=== PATIENT | male | born 1960 | race Caucasian/White ===

== ENCOUNTER 2016-11-16 13:47 | Outpatient (CLI) | payer OTHER ==
[2016-11-16 14:28] LABS: #Eosinphils 0.1 thou/uL (0.0-0.7); #Lymphocytes 1.2 thou/uL (1.20-3.40); #Monocytes 0.8 thou/uL (0.11-0.59); #Neutrophils 5.3 thou/uL (1.40-6.50); %Basophils 0.7 % (0.0-1.0); %Eosinophils 0.9 % (0.0-10.0); %Lymphocytes 16.6 % (21.0-51.0); %Monocytes 10.3 % (0.0-10.0); %Neutrophils 71.5 % (42.0-75.0); Hemoglobin 16.7 g/dL (14.0-18.0); Mean Corpuscular HGB CONC 33.8 g/dL (32.0-36.0); Mean Corpuscular Hemoglobin 32.5 pg (27.0-31.0); Mean Corpuscular Volume 96.3 fl (80.0-94.0); Mean Platelet Volume 7.6 fL (7.4-10.4); Platelet Count 155 thou/uL (130-400); RBC Distribution Width 12.2 % (11.5-14.5); Red Blood Cell (RBC) Count 5.14 mill/uL (4.70-6.10); White Blood Cell (WBC) Count 7.5 thou/uL (4.8-10.8)
[2016-11-16 14:37] LABS: ALT (SGPT) 33 U/L (0-55); AST (SGOT) 31 U/L (5-34); Albumin 4.4 g/dL (3.5-5.0); Alkaline Phosphatase 77 U/L (40-150); Anion Gap 16 mmol/L (10-20); BUN (Urea Nitrogen) 5 mg/dL (8.4-25.7); Bilirubin, Total 1.1 mg/dL (0.2-1.2); Calc. Creatinine Clearance 0 mL/min (70-130); Calcium 9.2 mg/dL (7.8-10.44); Carbon Dioxide 26 mmol/L (22-29); Chloride 101 mmol/L (98-107); Cholesterol 164 mg/dL (< 200 Desired); Estimated GFR-MDRD Greater than 90; Globulin 2.4 g/dL (2.4-3.5); Glucose 160 mg/dL (70-105); HDL Cholesterol 55 mg/dL (>60 Neg Risk); LDL Cholesterol, Calculated 57 mg/dL; Potassium 4.4 mmol/L (3.5-5.1); Protein, Total 6.8 g/dL (6.0-8.3); Sodium 139 mmol/L (136-145); Triglycerides 262 mg/dL (Less than 150)
[2016-11-16 15:03] LABS: Hemoglobin A1c 7.4 % (4.0-6.0)
== END 2016-11-16 13:48 ==
LOC: HPCALD 13:47
PROVIDERS: ATTEND Family Medicine
DX: E78.5 Hyperlipidemia, unspecified (principal); E29.1 Testicular hypofunction; E11.9 Type 2 diabetes mellitus without complications; I10 Essential (primary) hypertension
CPT/HCPCS: 36415; 80053; 80061; 83036; 84403; 85025

== ENCOUNTER 2018-01-10 11:19 | Outpatient (CLI) | payer OTHER ==
--- NOTE | 2018-01-10 13:22 | CT ---
CT OF THE ORBITS: Date: 01-10-[address] of the orbits was done for evaluation of orbital swelling. Axial slices were acquired initi ally. These were re-acquired after injection of IV contrast. Coronal and sagittal reconstructions wer e then done. FINDINGS: There is some mild preseptal swelling on the left. Each globe appears symmetrical with respect to the other. I see no retroorbital pathology such as swelling, inflammatory change, or other findings of c oncern. The surrounding bony structures were unremarkable except for some deviation of the nasal sept um to the left. The surrounding paranasal sinuses are clear. There is trace of mucosal thickening in the floor of each maxillary sinus which is judged to be insignificant. There were no areas of patholo gical enhancement that gave rise to concern. The visible adjacent portions of the brain on this scan showed no area of concern. IMPRESSION: Mild preseptal swelling anterior to the left orbit and globe. No significant findings otherwise. POS: HOME
== END 2018-01-10 11:20 | disposition home or self-care (01) ==
LOC: BURCT 11:19
PROVIDERS: ATTEND Ophthalmology
DX: H05.3 Deformity of orbit (principal); H05.222 Edema of left orbit
CPT/HCPCS: 70482

== ENCOUNTER 2018-06-17 08:17 | Emergency (ER) | payer OTHER ==
[2018-06-17 09:20] LABS: #Basophils 0.2 thou/uL (0.0-0.2); #Lymphocytes 1.3 thou/uL (1.20-3.40); #Monocytes 1.1 thou/uL (0.11-0.59); #Neutrophils 8.4 thou/uL (1.40-6.50); %Basophils 1.8 % (0.0-1.0); %Eosinophils 0.2 % (0.0-10.0); %Lymphocytes 11.4 % (21.0-51.0); %Monocytes 10.1 % (0.0-10.0); %Neutrophils 76.6 % (42.0-75.0); Hemoglobin 16.2 g/dL (14.0-18.0); Mean Corpuscular HGB CONC 33.4 g/dL (32.0-36.0); Mean Corpuscular Hemoglobin 27.5 pg (27.0-31.0); Mean Corpuscular Volume 82.4 fL (78.0-98.0); Mean Platelet Volume 7.7 fL (7.4-10.4); Platelet Count 199 thou/uL (130-400); RBC Distribution Width 11.3 % (11.5-14.5)
[2018-06-17 09:39] LABS: ALT (SGPT) 31 U/L (8-55); AST (SGOT) 64 U/L (5-34); Albumin 3.6 g/dL (3.5-5.0); Alkaline Phosphatase 245 U/L (40-150); Anion Gap 15 mmol/L (10-20); BUN (Urea Nitrogen) 6 mg/dL (8.4-25.7); Calc. Creatinine Clearance 0 mL/min (70-130); Calcium 11.5 mg/dL (7.8-10.44); Carbon Dioxide 27 mmol/L (22-29); Chloride 94 mmol/L (98-107); Estimated GFR-MDRD Greater than 90; Globulin 2.9 g/dL (2.4-3.5); Glucose 257 mg/dL (70-105); Protein, Total 6.5 g/dL (6.0-8.3); Sodium 132 mmol/L (136-145)
[2018-06-17 09:41] LABS: CKMB 0.4 ng/mL (0-6.6); Troponin I Less than 0.010 ng/mL (< 0.028)
[2018-06-17] MEDS ORDERED: Ketorolac Tromethamine 30 MG/ML VIAL ONE (09:45)
[2018-06-17] MEDS ORDERED: Ondansetron PF 4 MG/2 ML Vial ONE (09:45)
[2018-06-17 11:18] LABS: Troponin I Less than 0.010 ng/mL (< 0.028)
[2018-06-17] MEDS ORDERED: Ondansetron ODT 4 MG TAB ONE (12:07)
--- NOTE | 2018-06-17 13:31 | CT ---
CT OF ABDOMEN AND PELVIS: Date: 06/17/18 COMPARISON: None. HISTORY: Abdominal pain. TECHNIQUE: Axial CT imaging is obtained at 5 mm intervals from lung bases through the pubic symphysis with oral contrast. Coronal reformatted imaging obtained. Coronal and sagittal reformatted imaging. FINDINGS: The lack of IV contrast limits assessment of the viscera, bowel, vascular structures, and for lymphad enopathy. Imaged lung bases demonstrate numerous soft tissue nodules highly concerning for pulmonary metastatic disease. This includes nodules measuring up to 3.8 cm within the medial right lower lobe and nodule measuring up to 1.8 cm in left lower lobe. No free intraperitoneal air is seen. There are numerous vague hypodense lesions throughout the right and the left lobe of the liver, sugge sting extensive hepatic metastatic disease. [place] of hypodensity suggests extensive metastatic d isease within the left lobe measuring up to 5.3 cm. The spleen appears grossly unremarkable. Small gallstones are seen within the gallbladder lumen. No obvious pancreatic abnormality is seen, although assessment is limited without IV contrast media. Adrenal glands appear grossly unremarkable. There is a probable enlarged luna hepatis node measuring 1.6 cm in AP dimension on image 30. There i s a hypodense mass medial to the caudate lobe of the liver on image 23 measuring 2.5 cm, suspicious f or metastatic lymphadenopathy. No focal renal lesion is evident. There is abnormal small volume free fluid within the pelvis. Limited assessment of the bowel demonstrates scattered colonic diverticulosis. No discrete evidence o f bowel obstruction. Left periaortic lymphadenopathy noted on image 43 measuring up to 1.3 cm. Review of the osseous structures demonstrates multilevel lower lumbar spine facet hypertrophy, disc s pace narrowing, and degenerative end plate change. No definite lytic or blastic bone lesion identified. IMPRESSION: 1. Numerous hepatic lesions and numerous pulmonary parenchymal nodules within the imaged lung bases, evidence of widespread metastatic disease. There is also retroperitoneal and luna hepatis lymphaden opathy. 2. Cholelithiasis. 3. Nonspecific small volume free fluid in the pelvis, which could be malignant in nature. Results called to Dr. Taylor at 1220 hours on 06/17/18. CODE CR. POS: [facility]
--- NOTE | 2018-06-17 19:55 | RAD ---
RIGHT RIBS PA CHEST: Date: 06-17-18 FINDINGS: PA chest film shows numerous pulmonary nodules of varying sizes bilaterally. This is suspicious for m etastatic disease. Heart size is normal. There are no effusions. No focal pulmonary infiltrates were seen. There is a fracture of the right 6th rib anterolaterally that seems recent. There is slight lucency i n the bones so this may be pathologic. There is probable a similar fracture near the distal end of th e 7th rib. Fractures of indeterminate age are suggested in the 8th and 10th ribs. There is no pneumot horax or pleural effusion. IMPRESSION: 1. Multiple pulmonary nodules suggestive of metastatic disease. 2. Fractures of the 6th and 7th ribs that are likely recent. Other lower fractures may be subacute. T he possibility of pathologic fractures is raised. POS: HOME
== END 2018-06-17 12:51 | disposition home or self-care (01) ==
LOC: BURERS 08:17
DX: J98.4 Other disorders of lung (principal); G47.30 Sleep apnea, unspecified; M06.9 Rheumatoid arthritis, unspecified; E11.9 Type 2 diabetes mellitus without complications; I10 Essential (primary) hypertension
CPT/HCPCS: 36415; 74176; 80053; 82553; 83880; 84484; 85025; 93005; 96374; 96375; J1885; J2405; Q0162

== ENCOUNTER 2018-06-23 10:17 | Observation (INO) | payer OTHER ==
[~2018-06-23 10:17] MED LIST: Iopamidol 370 76% 125 ML VIAL FS ONE
[2018-06-23] MEDS ORDERED: Ondansetron PF 4 MG/2 ML Vial ONE ×2 (10:53→12:59)
[2018-06-23 11:04] LABS: #Basophils 0.2 thou/uL (0.0-0.2); #Lymphocytes 1.6 thou/uL (1.20-3.40); #Monocytes 1.7 thou/uL (0.11-0.59); %Basophils 1.1 % (0.0-1.0); %Eosinophils 0.3 % (0.0-10.0); %Lymphocytes 10.8 % (21.0-51.0); %Monocytes 11.9 % (0.0-10.0); Hemoglobin 16.5 g/dL (14.0-18.0); Mean Corpuscular HGB CONC 34.6 g/dL (32.0-36.0); Mean Corpuscular Hemoglobin 27.7 pg (27.0-31.0); Mean Corpuscular Volume 80.2 fL (78.0-98.0); Mean Platelet Volume 7.4 fL (7.4-10.4); Platelet Count 229 thou/uL (130-400); RBC Distribution Width 11.2 % (11.5-14.5); Red Blood Cell (RBC) Count 5.96 mill/uL (4.70-6.10); White Blood Cell (WBC) Count 14.5 thou/uL (4.8-10.8)
[2018-06-23 11:15] LABS: ALT (SGPT) 26 U/L (8-55); AST (SGOT) 49 U/L (5-34); Albumin 3.5 g/dL (3.5-5.0); Alkaline Phosphatase 282 U/L (40-150); Anion Gap 16 mmol/L (10-20); BUN (Urea Nitrogen) 11 mg/dL (8.4-25.7); Calc. Creatinine Clearance 0 mL/min (70-130); Calcium 11.7 mg/dL (7.8-10.44); Carbon Dioxide 26 mmol/L (22-29); Chloride 91 mmol/L (98-107); Estimated GFR-MDRD Greater than 90; Globulin 3.1 g/dL (2.4-3.5); Glucose 256 mg/dL (70-105); Lipase 10 U/L (8-78); Protein, Total 6.6 g/dL (6.0-8.3); Sodium 129 mmol/L (136-145)
[2018-06-23] MEDS ORDERED: Fentanyl 100 MCG/2 ML VIAL ONE (11:27)
[2018-06-23 12:06] LABS: Clarity Clear (Clear); Leukocyte Negative (Negative); Nitrite Negative (Negative)
[2018-06-23 12:07] LABS: Bilirubin Negative (Negative); Blood, Urine Negative (Negative); Glucose, Urine (Dipstick) 100 mg/dL (Negative); Protein, Urine (Dipstick) 30 mg/dL (Neg-Trace); Urobilinogen 0.2 mg/dL (0.2-1.0)
[2018-06-23 12:08] LABS: Bacteria/HPF Rare-Few HPF (None Seen); RBC/HPF 0-3 HPF (0-3); Squamous Epithelial 0-3 HPF (0-3); WBC/HPF 0-3 HPF (0-3)
--- NOTE | 2018-06-23 12:36 | CT ---
CT OF THE CHEST WITH CONTRAST: Date: 06-23-[address] of the chest was performed for evaluation of dyspnea in this patient with known hepatic and pulmonary masses. FINDINGS: Multiple pulmonary nodules of varying sizes are seen in all lobes. The larger nodules are associated with the lower lobes, some in the parenchyma itself and some abutting the pleura. There are no large pleural effusions. There is evidence of some mediastinal adenopathy. One in the right lower trachea b ronchial nodes is enlarged to 2.2 cm in diameter. No pericardial fluid was seen. While the study was not done using a pulmonary embolism protocol, there are no gross filling defects in the proximal port ions of the main pulmonary arteries. Scans through the upper abdomen show a good portion of the liver which shows multiple masses of varyi ng sizes. There is one particularly large one involving mostly the left lobe that is just under t10 c m in size. There are also multiple low density masses around the portahepatis that are presumably enl arged hepatic portal nodes. These may be partially compressing the portal vein. There is a solitary r ounded low density measuring about 1.5 cm in size in the spleen that is presumed to be a mass as well . There is probably a subcentimeter mass associated with the right adrenal gland and left adrenal gla nd is somewhat globular and might have an associated mass as well. Degenerative changes are present throughout the spine. I do not appreciate any area of julia bony isaiah truction. IMPRESSION: 1. Multiple pulmonary and hepatic masses consistent with diffuse metastatic disease. 2. A small amount of mediastinal adenopathy is seen. There is significant adenopathy around the luna hepatis and some of these nodes may be compressing the portal vein. Findings discussed with Dr. Carter at 1211 on 06-23-18. POS: HOME
[2018-06-23] MEDS ORDERED: HYDROmorphone 0.5 MG/0.5 ML SYRINGE ONE (12:47)
--- NOTE | 2018-06-23 12:50 | CT ---
CT OF THE BRAIN WITH CONTRAST: DATE: 06/23/2018. FINDINGS: The study was done with IV contrast due to the possibility of metastatic disease. The patient presen ts with syncope and weakness. The ventricles are normal in size with no shift. No parenchymal masses or areas of abnormal enhancem ent were seen to diagnose metastatic disease at this time. A tiny lacunar infarct from the past is s een in the right basal ganglia. There is no dilation of the ventricles. No bleeding was seen. Ther e was no sign of acute stroke. The skull appears normal. IMPRESSION: No acute intracranial findings. Findings discussed with Dr. Carter at 1211 at 06/23/2018. CODE CR POS: HOME
[2018-06-23] MEDS ORDERED: Ketorolac Tromethamine 30 MG/ML VIAL ONE (12:59)
[2018-06-23] MEDS: Sodium Chloride 0.9% 1,000 ML IV SCH ×2 (14:00→20:50)
[2018-06-23] MEDS ORDERED: Acetaminophen 325 MG TAB PO PRN (15:26)
[2018-06-23] MEDS ORDERED: Ondansetron ODT 4 MG TAB SL PRN (15:26)
[2018-06-23] MEDS ORDERED: Ondansetron PF 4 MG/2 ML Vial IVP PRN (15:26)
[2018-06-23 15:39] VITALS: BMI 27.3
[2018-06-23] MEDS ORDERED: Morphine 4 MG/ML VIAL ONE (16:25)
[2018-06-23] MEDS ORDERED: HYDROcodone/Acetaminophen 10/325 mg Tablet PO PRN (16:47)
[2018-06-23] MEDS ORDERED: Hyoscyamine Sulfate SL 0.125 mg Tablet SL PRN (16:47)
[2018-06-23] MEDS ORDERED: Dextrose 5% in Water 1,000 ML IV PRN (16:49)
[2018-06-23] MEDS ORDERED: Dextrose 50% Abboject 50 ML SYRINGE SLOW IVP PRN (16:49)
[2018-06-23] MEDS ORDERED: HumaLOG 300 UNITS/3 ML VIAL SC PRN (16:49)
[2018-06-23] MEDS ORDERED: Non-Formulary Item 1 EACH (Exenatide Microspheres [Bydureon Pen] 2 MG) SC SCH (17:00)
[2018-06-23] MEDS ORDERED: Ondansetron ODT 4 MG TAB PO PRN (17:23)
[2018-06-23] MEDS: metFORMIN 500 MG TAB PO SCH (17:40)
[2018-06-23] MEDS: HYDROcodone/Acetaminophen 5/325 mg Tablet PO PRN (19:27)
[2018-06-23] MEDS ORDERED: Morphine 4 MG/ML VIAL SLOW IVP PRN (19:41)
[2018-06-23] MEDS: Famotidine 20 MG TAB PO SCH (20:54)
[2018-06-23] MEDS: Promethazine 25 MG TAB PO SCH (20:55)
[2018-06-23] MEDS: Carvedilol 12.5 MG TAB PO SCH (20:55)
[2018-06-23] MEDS ORDERED: Enoxaparin Sodium 30 MG/0.3 ML SYRINGE SC SCH (21:00)
[2018-06-23] MEDS ORDERED: Zolpidem Tartrate 5 MG TAB PO SCH (21:00)
[2018-06-24] MEDS: Sodium Chloride 0.9% 1,000 ML IV SCH ×2 (02:36→04:22)
[2018-06-24] MEDS: HYDROcodone/Acetaminophen 5/325 mg Tablet PO PRN (03:14)
[2018-06-24 05:55] LABS: ALT (SGPT) 25 U/L (8-55); AST (SGOT) 52 U/L (5-34); Albumin 2.9 g/dL (3.5-5.0); Alkaline Phosphatase 243 U/L (40-150); Anion Gap 13 mmol/L (10-20); BUN (Urea Nitrogen) 7 mg/dL (8.4-25.7); Bilirubin, Total 0.7 mg/dL (0.2-1.2); Calc. Creatinine Clearance 141 mL/min (70-130); Carbon Dioxide 26 mmol/L (22-29); Chloride 98 mmol/L (98-107); Estimated GFR-MDRD Greater than 90; Globulin 2.4 g/dL (2.4-3.5); Glucose 199 mg/dL (70-105); Potassium 3.7 mmol/L (3.5-5.1); Protein, Total 5.3 g/dL (6.0-8.3); Sodium 133 mmol/L (136-145)
--- NOTE | 2018-06-24 06:15 | HP ---
CHIEF COMPLAINT: Generalized weakness with dizziness. HISTORY OF PRESENT ILLNESS: A 58-year-old male presented to [facility] Emergency Department earlier today with complaints of worsening generalized weakness along with dizziness, nausea, vomiting, and generalized abdominal pain. He was recently seen in the clinical setting approximately 1 week ago with similar complaints of abdominal pain and fatigue with a notation that he has lost 11 pounds over the last month. It was noted that the patient was previously seen by Dr. Espinoza, Gastroenterology in [place], with the patient's prior colonoscopy in 2011 to 2012 positive for hemorrhoids. The patient's most recent PSA level as of 11/29/2017 was 1.35. At the time of his clinical visit, a CT scan of the abdomen and pelvis was ordered. This actually ended up being done a few days later and revealed numerous hepatic lesions and numerous pulmonary parenchymal nodules within the imaged lung bases, evidence of wide spread metastatic disease, there is also retroperitoneal and luna hepatis lymphadenopathy. Due to these findings, the patient was referred to Hematology/Oncology. He reports to have seen Dr. Castle earlier this week, who advised CT of his chest along with potentially planned biopsy of liver lesion. CT of the chest was obtained in the emergency department today revealing multiple pulmonary and hepatic masses consistent with diffuse metastatic disease with a small amount of mediastinal adenopathy being seen. Significant adenopathy around the luna hepatis and some of these nodes maybe compressing the portal vein. At this time, the patient is unsure exactly when his followup appointment with Oncology is. CT of the brain was reassuring. Lab evaluation reveals the patient to be dehydrated with hyponatremia. He is being admitted under observation status for IV fluids and pain control. PAST MEDICAL HISTORY: Includes type 2 diabetes mellitus, hemorrhoids, hyperlipidemia, and hypertension. PAST SURGICAL HISTORY: Colonoscopy between 2011 and 2012 revealing internal hemorrhoids. He has had a right eye surgery and a left eye surgery, cataracts repair. He has also had a procedure to the right hip. SOCIAL HISTORY: Denies EtOH, smoking, or illicit drug use. ALLERGIES: NO KNOWN DRUG ALLERGIES. FAMILY HISTORY: Noncontributory. CURRENT MEDICATIONS: Include; 1. Hydrocodone/acetaminophen 10/325 p.o. q.6 hours. 2. Nexium 40 mg p.o. daily. 3. Lorazepam 0.5 mg p.o. at bedtime p.r.n. 4. Cyclobenzaprine 10 mg p.o. at bedtime p.r.n. 5. Atorvastatin 40 mg p.o. at bedtime. 6. Testosterone 2 mg 24-hour patch daily. 7. Amlodipine 10 mg p.o. daily. 8. Carvedilol 25 mg p.o. b.i.d. 9. Metformin 500 mg p.o. b.i.d. 10. Bydureon 2 mg injection once a week. 11. Hyoscyamine 0.125 mg q.6 hours p.r.n. REVIEW OF SYSTEMS: VITAL SIGNS: Temperature is 97.7, pulse is 92, respiratory rate is 18, oxygen is 98% on room air, blood pressure is 140/86. GENERAL: The patient complains of fatigue. Denies fever. EAR, NOSE, AND THROAT: Denies sore throat, nasal drainage, or congestion. CARDIOVASCULAR: Denies chest pain or palpitations. RESPIRATORY: Denies shortness of breath or cough. GASTROINTESTINAL: Complains of abdominal pain, nausea, and vomiting. GENITOURINARY: Denies dysuria. MUSCULOSKELETAL: Complains of joint pain. DERMATOLOGY: Denies rash. NEUROLOGIC: Denies headache. LABORATORY DATA: White blood cell count is 14.5, H and H are 16.5 and 47.8. Sodium is 129, potassium is 4.0, BUN is 11, creatinine 0.72, GFR is greater than 90, glucose 256, calcium 11.7, AST 49, ALT 26, alk phos is 282, lipase is 10. IMAGING DATA: On 06/23/2018, brain CT shows no acute intracranial findings. A tiny old lacunar infarct seen in the right basal ganglia. No parenchymal masses or areas of abnormal enhancement seen to diagnose metastatic disease. On 06/23/2018, chest CT shows multiple pulmonary and hepatic masses consistent with diffuse metastatic disease. A small amount of mediastinal adenopathy is seen. There is significant adenopathy around the luna hepatis and some of these nodes maybe compressing the portal vein. ASSESSMENT AND PLAN: 1. Dehydration. The patient has been started on normal saline at 150 mL an hour. 2. Generalized weakness, progressive over the last month. We hope this improves with IV hydration likely related to his underlying new diagnosis of metastatic cancer. 3. Metastatic cancer. We will need clarification on when patient's followup is with Oncology and Dr. Castle. Unclear of primary source. The patient has elected to be full code at this time. 4. Hyponatremia. We will look for this to improve with IV fluid hydration and repeat his electrolytes in the morning. 5. Hypertension. The patient is hemodynamically stable. Resume his home blood pressure medications. 6. Type 2 diabetes mellitus. We will resume the patient's usual medications and add a sliding scale along with before meals and at bedtime glucose checks. 7. Prophylaxis. We will add Lovenox for deep venous thrombosis prophylaxis and famotidine for gastrointestinal prophylaxis. CODE STATUS: Full. DISPOSITION: Hopeful discharge of the patient tomorrow back to his home setting once he is euvolemic with plan to follow up with Oncology as an outpatient thereafter. DISCHARGE SUMMARY: Pt received IVF's overnight and had satisfactory rest; sodium has improved to 133. Pain is stable. He does have residual nausea for which he will be discharged with Promethazine; he will resume his usual medications otherwise; po intake has rosmery satisfactory. I have asked that his updated imaging, CT of brain and chest be forwarded to Dr. Castle, oncology. Apparently there is an issue with insurance needing approval to pursue further treatment options with oncology; pt will be provided with the contact information for oncology so this may hopefully be resolved in a timely manner. Job ID: [id number] MTDD
[2018-06-24 06:34] LABS: #Basophils 0.1 thou/uL (0.0-0.2); #Eosinphils 0.1 thou/uL (0.0-0.7); #Lymphocytes 0.9 thou/uL (1.20-3.40); #Monocytes 1.3 thou/uL (0.11-0.59); #Neutrophils 7.8 thou/uL (1.40-6.50); %Basophils 1.4 % (0.0-1.0); %Eosinophils 0.6 % (0.0-10.0); %Lymphocytes 8.5 % (21.0-51.0); %Monocytes 12.3 % (0.0-10.0); %Neutrophils 77.2 % (42.0-75.0); Hemoglobin 14.3 g/dL (14.0-18.0); Mean Corpuscular HGB CONC 33.8 g/dL (32.0-36.0); Mean Corpuscular Hemoglobin 27.8 pg (27.0-31.0); Mean Corpuscular Volume 82.4 fL (78.0-98.0); Mean Platelet Volume 7.8 fL (7.4-10.4); Platelet Count 172 thou/uL (130-400); RBC Distribution Width 11.5 % (11.5-14.5); Red Blood Cell (RBC) Count 5.16 mill/uL (4.70-6.10); White Blood Cell (WBC) Count 10.2 thou/uL (4.8-10.8)
[2018-06-24] MEDS: metFORMIN 500 MG TAB PO SCH (08:42)
[2018-06-24] MEDS: Promethazine 25 MG TAB PO SCH (08:43)
[2018-06-24] MEDS: Famotidine 20 MG TAB PO SCH (08:43)
[2018-06-24] MEDS: Carvedilol 12.5 MG TAB PO SCH (08:43)
[2018-06-24] MEDS ORDERED: Prevnar 13-Val Conj/PF 0.5 ML SYRINGE IM ONE (09:00)
[2018-06-24] MEDS ORDERED: Atorvastatin Calcium 40 MG TAB PO SCH (09:00)
[2018-06-24 09:38] VITALS: TEMP 97.5
[2018-06-24 10:12] VITALS: BP 182/91
== END 2018-06-24 10:25 | disposition home or self-care (01) ==
LOC: BURERS 10:17 → BURMED 13:54
PROVIDERS: ADMIT Family Medicine; ATTEND Family Medicine
DX: R53.1 Weakness (principal); R42 Dizziness and giddiness; R11.2 Nausea with vomiting, unspecified; R10.9 Unspecified abdominal pain; E11.9 Type 2 diabetes mellitus without complications; E78.5 Hyperlipidemia, unspecified; I10 Essential (primary) hypertension; E86.0 Dehydration; E87.1 Hypo-osmolality and hyponatremia; C80.1 Malignant (primary) neoplasm, unspecified; C79.9 Secondary malignant neoplasm of unspecified site; Z79.84 Long term (current) use of oral hypoglycemic drugs; Z79.899 Other long term (current) drug therapy
CPT/HCPCS: 36415; 36416; 70460; 71260; 80053; 81003; 81015; 83605; 83690; 84484; 85025; 96361; 96372; 96374; 96375; 96376; G0378; J1170; J1650; J1885; J2270; J2405; J3010

== ENCOUNTER 2018-07-18 13:26 | Inpatient (IN) | payer OTHER ==
[2018-07-18 14:29] LABS: Band 5 % (5-11); Hemoglobin 14.4 g/dL (14.0-18.0); Lymphocytes 4 % (21-51); MDiff Complete? YES; Mean Corpuscular HGB CONC 31.5 g/dL (32.0-36.0); Mean Corpuscular Hemoglobin 27.6 pg (27.0-31.0); Mean Corpuscular Volume 87.9 fL (78.0-98.0); Mean Platelet Volume 6.3 fL (7.4-10.4); Monocytes 11 % (0-10); Neutrophil 80 % (42-75); Platelet Count 248 thou/uL (130-400); RBC Distribution Width 14.7 % (11.5-14.5); Red Blood Cell (RBC) Count 5.23 mill/uL (4.70-6.10); White Blood Cell (WBC) Count 25.5 thou/uL (4.8-10.8)
[2018-07-18] MEDS ORDERED: Fentanyl 100 MCG/2 ML VIAL ONE (14:37)
[2018-07-18 14:38] LABS: ALT (SGPT) 116 U/L (8-55); AST (SGOT) 217 U/L (5-34); Albumin 2.8 g/dL (3.5-5.0); Alkaline Phosphatase 1397 U/L (40-150); Anion Gap 17 mmol/L (10-20); BUN (Urea Nitrogen) 6 mg/dL (8.4-25.7); Bilirubin, Total 13.4 mg/dL (0.2-1.2); Calc. Creatinine Clearance 0 mL/min (70-130); Calcium 9.7 mg/dL (7.8-10.44); Carbon Dioxide 30 mmol/L (22-29); Chloride 85 mmol/L (98-107); Estimated GFR-MDRD Greater than 90; Globulin 2.9 g/dL (2.4-3.5); Glucose 139 mg/dL (70-105); Lipase 9 U/L (8-78); Potassium 3.9 mmol/L (3.5-5.1); Protein, Total 5.7 g/dL (6.0-8.3); Sodium 128 mmol/L (136-145)
[2018-07-18] MEDS ORDERED: Ondansetron PF 4 MG/2 ML Vial ONE (14:38)
[2018-07-18] MEDS ORDERED: Famotidine In NaCl 20 mg/50 ml Premix Bag ONE ×2 (14:38→14:39)
[2018-07-18 15:05] LABS: Clarity SLIGHTLY (Clear)
[2018-07-18 15:06] LABS: Bilirubin Large (Negative); Blood, Urine Negative (Negative); Glucose, Urine (Dipstick) 100 mg/dL (Negative); Leukocyte Negative (Negative); Nitrite Negative (Negative); Protein, Urine (Dipstick) 100 mg/dL (Neg-Trace); Specific Gravity, Urine 1.015 (1.005-1.030); Urobilinogen 0.2 mg/dL (0.2-1.0)
[2018-07-18 15:10] LABS: Bacteria/HPF Rare-Few HPF (None Seen); Crystals/HPF None Seen HPF (Negative); Hyaline Casts/LPF NONE SEEN LPF (0-3 Hyaline); Other Casts/LPF None Seen LPF (0-3 Hyaline); Oval Fat Bodies/HPF None Seen HPF (None Seen); RBC/HPF 0-3 HPF (0-3); Renal Epithelial None Seen HPF (0-3); Sperm/HPF None Seen HPF (None Seen); Squamous Epithelial 0-3 HPF (0-3); Transitional Epithelial NONE SEEN HPF (0-3); Trichomonas/HPF None Seen HPF (None Seen); WBC/HPF 0-3 HPF (0-3); Yeast-All Forms None Seen HPF (None Seen)
[2018-07-18] MEDS ORDERED: Morphine 4 MG/ML VIAL ONE ×2 (15:51→21:13)
[2018-07-18] MEDS ORDERED: Ondansetron ODT 4 MG TAB SL PRN (17:19)
[2018-07-18] MEDS ORDERED: Ondansetron PF 4 MG/2 ML Vial IVP PRN (17:19)
[2018-07-18] MEDS ORDERED: Acetaminophen 325 MG TAB PO PRN (17:19)
[2018-07-18] MEDS ORDERED: Sodium Chloride 0.9% 1,000 ML IV SCH (17:19)
[2018-07-18] MEDS ORDERED: HYDROcodone/Acetaminophen 5/325 mg Tablet PO PRN ×4 (17:19→19:19)
[2018-07-18 18:15] VITALS: BMI 27.1
[2018-07-18] MEDS ORDERED: Lorazepam 2 MG/ML VIAL SLOW IVP PRN (19:01)
[2018-07-18] MEDS ORDERED: Zolpidem Tartrate 5 MG TAB PO PRN (19:01)
[2018-07-18] MEDS ORDERED: Bisacodyl 10 MG SUPP PR PRN (19:01)
[2018-07-18] MEDS ORDERED: Scopolamine 1.5 mg/72 hour Patch TD PRN (19:01)
[2018-07-18] MEDS: Senokot S 8.6-50 MG TAB PO SCH (20:33)
[2018-07-18] MEDS: Promethazine 25 MG TAB PO SCH (20:33)
[2018-07-18] MEDS: Ciprofloxacin 500 MG TAB PO SCH (20:33)
[2018-07-18] MEDS: Ondansetron ODT 4 MG TAB PO SCH (20:33)
[2018-07-18] MEDS: Carvedilol 12.5 MG TAB PO SCH (20:33)
[2018-07-18] MEDS: Sucralfate 1 GM TAB PO SCH (20:33)
[2018-07-18] MEDS: Morphine 4 MG/ML VIAL SLOW IVP PRN (21:17)
[2018-07-18] MEDS ORDERED: Haloperidol Lactate 5 MG/ML VIAL ONE (21:40)
[2018-07-18] MEDS: Haloperidol Lactate 5 MG/ML VIAL SLOW IVP PRN (21:50)
[2018-07-18] MEDS: Dextrose 5 %-0.45 % NaCl 1,000 ML IV SCH (21:56)
[2018-07-18] MEDS ORDERED: Ziprasidone 20 MG VIAL ONE (23:25)
[2018-07-18] MEDS: Ziprasidone 20 MG VIAL IM PRN (23:33)
[2018-07-19] MEDS ORDERED: Morphine 4 MG/ML VIAL ONE ×3 (01:32→10:56)
[2018-07-19] MEDS: Morphine 4 MG/ML VIAL SLOW IVP PRN ×3 (01:37→11:00)
--- NOTE | 2018-07-19 01:39 | HP ---
CHIEF COMPLAINT: Intractable pain and progressive weakness. HISTORY OF PRESENT ILLNESS: A 58-year-old male presented to the [facility] Emergency Department with complaints of progressive weakness and diffuse pain related to his underlying metastatic cancer. He has metastatic cancer to the liver and the lung. The patient had a recent admission at [facility] in [place] where he presented with similar symptoms, for which he received aggressive IV hydration and pain control. During his stay, he had a liver biopsy revealing poorly-differentiated adenocarcinoma; primary source of cancer is unknown. Work-up in the ED here shows markedly elevated bilirubin level and alk phos with increasing LFT's, and he appears to be progressing towards liver failure. His intake is understandably poor. The patient had been in the process to be set up for hospice care at his home; however, he does not have anyone who lives with him; only has his sister living nearby. Due to his inability to care for himself and not having the capability for home hospice, he has been admitted for palliative care with ultimate potential transfer to the intermediate setting for further hospice care. PAST MEDICAL HISTORY: Includes diabetes, hyperlipidemia, hypertension, and chronic pain. PAST SURGICAL HISTORY: Colonoscopy in 2011 and 2012 revealing internal hemorrhoids and he had a right eye surgery and left eye surgery, bilateral cataract repair, and a right hip procedure. SOCIAL HISTORY: Occasional ETOH use. He quit smoking 8 years ago. Denies illicit drug use. ALLERGIES: NO KNOWN DRUG ALLERGIES. FAMILY HISTORY: Noncontributory. REVIEW OF SYSTEMS: GENERAL: Complains of fatigue. Denies fever. EARS, NOSE, AND THROAT: Denies sore throat, nasal drainage or congestion. CARDIOVASCULAR: Denies chest pain or palpitations. RESPIRATORY: Denies shortness of breath or cough. GASTRO: Complains of abdominal pain. GENITOURINARY: Denies dysuria. MUSCULOSKELETAL: Complains of joint pain. DERM: Denies rash. NEURO: Denies headache. MEDICATIONS: 1. Atorvastatin 40 mg p.o. daily. 2. Carvedilol 12.5 mg p.o. b.i.d. 3. Metformin 500 mg p.o. b.i.d. 4. Promethazine 25 mg b.i.d. p.r.n. 5. Hydrocodone 10-325 q.6 hours p.r.n. 6. Bydureon injection weekly. LABORATORY DATA: White blood cell count 25.5, H/H of 14.4 and 45.9, platelet count 248. Sodium is 128, potassium 3.9, bicarb is 30, BUN is 6, creatinine 0.66. Glucose 139. Total bilirubin is 13.4, AST 217, ALT 116, alkaline phosphatase is 1397, lipase is 9. PHYSICAL EXAMINATION: VITAL SIGNS: Pending. GENERAL: The patient is alert, cachectic and ill-appearing, notable jaundice. HEAD, EYES, EARS, NOSE, AND THROAT: Normocephalic, atraumatic. Pupils are equal, round and reactive to light. Extraocular muscles are intact. He has scleral icterus. Dry mucous membranes. NECK: Supple without lymphadenopathy. CARDIOVASCULAR: Sinus tachycardia with normal S1, S2. RESPIRATORY: Clear to auscultation bilaterally without wheezes, rales, or rhonchi. There is mild tachypnea. ABDOMEN: Distended, TTP without rebound or guarding EXTREMITIES: He has 1+ bilateral lower extremity edema. NEURO: Cranial nerves II through XII are grossly intact. ASSESSMENT AND PLAN: 1. Metastatic adenocarcinoma involving the liver and lung. I have spoken with the patient and his sister. They both confirmed and preferred DNR status regarding his terminal condition. We will proceed with palliative care, including pain control and IV hydration and we will attempt to set the patient up for further hospice care in the intermediate setting as he is unable to have home hospice. 2. Diffuse pain. As stated, we will provide pain control via palliative care orders. 3. Hyponatremia. We will provide D5 half-normal saline. 4. Hypertension. We will resume the patient's home blood pressure medications. 5. Code status is DNR. Job ID: [id number] [facility]
[2018-07-19] MEDS ORDERED: Ziprasidone 20 MG VIAL ONE (05:14)
[2018-07-19] MEDS: Ziprasidone 20 MG VIAL IM PRN (05:21)
[2018-07-19] MEDS: Ciprofloxacin 500 MG TAB PO SCH ×2 (05:22→22:39)
[2018-07-19] MEDS: Dextrose 5 %-0.45 % NaCl 1,000 ML IV SCH ×3 (06:25→22:40)
[2018-07-19] MEDS ORDERED: Haloperidol Lactate 5 MG/ML VIAL ONE ×2 (06:31→11:30)
[2018-07-19] MEDS: Haloperidol Lactate 5 MG/ML VIAL SLOW IVP PRN (06:34)
[2018-07-19] MEDS: Carvedilol 12.5 MG TAB PO SCH ×2 (10:51→22:39)
[2018-07-19] MEDS: Sucralfate 1 GM TAB PO SCH ×4 (10:51→22:40)
[2018-07-19] MEDS: Ondansetron ODT 4 MG TAB PO SCH ×3 (10:52→22:39)
[2018-07-19] MEDS: Promethazine 25 MG TAB PO SCH ×2 (10:52→22:40)
[2018-07-19] MEDS: Senokot S 8.6-50 MG TAB PO SCH ×2 (10:53→22:40)
[2018-07-19] MEDS ORDERED: fentaNYL 50 mcg/hour Patch TD SCH (12:00)
[2018-07-20] MEDS ORDERED: Morphine 4 MG/ML VIAL ONE ×3 (04:16→20:28)
[2018-07-20] MEDS: Morphine 4 MG/ML VIAL SLOW IVP PRN ×2 (04:20→16:19)
[2018-07-20] MEDS: Ciprofloxacin 500 MG TAB PO SCH (06:30)
[2018-07-20] MEDS: Dextrose 5 %-0.45 % NaCl 1,000 ML IV SCH ×2 (06:33→14:41)
--- NOTE | 2018-07-20 08:20 | PRG ---
DATE OF SERVICE: 07/19/2018 PRIMARY CARE PHYSICIAN: Demetrius Bennett MD. SUBJECTIVE: The patient repeatedly attempted to crawl out of the bed last night , very agitated despite medication with morphine, Ativan, and Haldol. He was medicated with Geodon 10 mg IM and was able to calm down for few hours. This morning, he was complaining of generalized pain, not improved with morphine 4 mg every 4 hours. Hence, fentanyl patch was initiated. He fell asleep and able to rest. Nurse noticed that he is pocketing his oral medications. He is not eating. His sister, who is at bedside, requested for better control of pain. OBJECTIVE: VITAL SIGNS: Temperature of 98.4, pulse rate of 114, respiratory rate of 26, O2 saturation 96% on room air, blood pressure 144/95. GENERAL: The patient is sleeping, hard to arouse, with sonorous breathing. HEENT: Normocephalic and atraumatic. Dry mucous membrane. NECK: Supple. Negative for jugular venous distention. CARDIOVASCULAR: Tachycardic. Regular rate and rhythm. RESPIRATORY: Coarse breath sounds referred from sonorous breathing. Negative wheezing, rales, or rhonchi. ABDOMEN: Distended without rebound tenderness. SKIN: Generalized jaundice. LABORATORY DATA: Reviewed. ASSESSMENT: 1. Metastatic adenocarcinoma of the liver and lung. 2. Cancer pain. 3. Hypertension. 4. End-of-life care. 5. Code status, DNR. PLAN: 1. Adjusted pain medication with fentanyl (mcg) every 72 hours. 2. Adjusted morphine 4 mg every 2 hours for breakthrough pain. 3. Advise to hold oral medications for aspiration precaution. 4. Continue present palliative care. 5. Transition to Hospice care when available for placement. Job ID: [id number] MTDD
[2018-07-20] MEDS ORDERED: Furosemide 40 MG/4 ML VIAL SLOW IVP SCH (08:30)
[2018-07-20] MEDS: Senokot S 8.6-50 MG TAB PO SCH (08:50)
[2018-07-20] MEDS: Carvedilol 12.5 MG TAB PO SCH (08:50)
[2018-07-20] MEDS: Ondansetron ODT 4 MG TAB PO SCH ×2 (08:50→16:33)
[2018-07-20] MEDS: Promethazine 25 MG TAB PO SCH (08:50)
[2018-07-20] MEDS: Sucralfate 1 GM TAB PO SCH ×2 (08:50→11:13)
[2018-07-20 17:31] VITALS: BP 120/85; TEMP 98.9
--- NOTE | 2018-07-20 19:45 | DIS ---
DATE OF ADMISSION: 07/18/2018 DATE OF DISCHARGE: 07/20/2018 ADMISSION DIAGNOSES: Metastatic adenocarcinoma involving the liver and lung, intractable pain, hyponatremia, liver failure, hypertension. PROCEDURES: None. HOSPITAL COURSE: A 58-year-old male with underlying metastatic adenocarcinoma involving his liver and lung, presented to [facility] Emergency Department with progressive weakness and intractable pain. The patient's condition has rapidly declined over the last month and notably progressed within the last week as well. Due to the patient's underlying condition, he was being arranged for home hospice; however, this is unable to be done as he lives alone. He is unable to satisfactorily care for himself, thus he was admitted to receive improved pain control and IV hydration with a plan to set him up for hospice within the [facility] setting. He thus has been provided palliative care including medications to control his pain and agitation. He was unable to be discharged to a [facility] for hospice care and thus will discharged from inpatient status to inpatient hospice care under the guidance of [facility] at this time. Job ID: [id number] [facility]
== END 2018-07-20 17:15 | disposition hospice, inpatient (51) | DRG 436 ==
LOC: BURERS 13:26 → BURMED 15:45
PROVIDERS: ADMIT Family Medicine; ATTEND Family Medicine
DX: C78.7 Secondary malignant neoplasm of liver and intrahepatic bile duct (principal); C78.00 Secondary malignant neoplasm of unspecified lung; E87.1 Hypo-osmolality and hyponatremia; E11.9 Type 2 diabetes mellitus without complications; E78.5 Hyperlipidemia, unspecified; Z51.5 Encounter for palliative care; Z66 Do not resuscitate; K72.90 Hepatic failure, unspecified without coma; I10 Essential (primary) hypertension; G47.30 Sleep apnea, unspecified; M06.9 Rheumatoid arthritis, unspecified; G89.3 Neoplasm related pain (acute) (chronic); Z98.41 Cataract extraction status, right eye; Z98.42 Cataract extraction status, left eye; Z98.890 Other specified postprocedural states; Z79.84 Long term (current) use of oral hypoglycemic drugs; Z79.899 Other long term (current) drug therapy; Z87.891 Personal history of nicotine dependence
CPT/HCPCS: 80053; 81003; 81015; 83690; 85025; 96365; 96375; J1630; J1940; J2060; J2270; J2405; J3010; J3486; Q0162

== ENCOUNTER 2018-07-20 17:20 | Inpatient (IN) | payer OTHER ==
[2018-07-20] MEDS ORDERED: Acetaminophen 650 MG Suppository PR PRN (17:43)
[2018-07-20] MEDS ORDERED: Acetaminophen 325 MG TAB PO PRN (17:43)
[2018-07-20] MEDS ORDERED: Lorazepam 2 MG/ML VIAL SLOW IVP PRN ×2 (17:45→20:29)
[2018-07-20] MEDS ORDERED: Lorazepam 0.5 MG TAB PO PRN ×2 (17:45→20:22)
[2018-07-20] MEDS ORDERED: chlorproMAZINE HCl 50 MG/2 ML AMP IM/IV PRN ×2 (17:46→20:30)
[2018-07-20] MEDS ORDERED: Haloperidol Lactate 5 MG/ML VIAL SLOW IVP PRN (17:46)
[2018-07-20] MEDS ORDERED: Ondansetron PF 4 MG/2 ML Vial SLOW IVP PRN (17:48)
[2018-07-20] MEDS ORDERED: Promethazine HCl 25 MG SUPP PR PRN (17:48)
[2018-07-20] MEDS ORDERED: Ondansetron ODT 4 MG TAB PO PRN (17:48)
[2018-07-20] MEDS ORDERED: diphenhydrAMINE 25 MG CAP PO PRN (17:48)
[2018-07-20] MEDS ORDERED: Hyoscyamine Sulfate SL 0.125 mg Tablet SL PRN (17:49)
[2018-07-20] MEDS ORDERED: Scopolamine 1.5 mg/72 hour Patch TOP PRN ×2 (17:50→20:31)
[2018-07-20] MEDS ORDERED: fentaNYL 50 mcg/hour Patch TD SCH (18:00)
[2018-07-20 18:08] VITALS: BMI 28.6
[2018-07-20] MEDS: Morphine 4 MG/ML VIAL SLOW IVP PRN ×2 (20:38→22:43)
[2018-07-20] MEDS ORDERED: Morphine 4 MG/ML VIAL ONE (22:39)
[2018-07-21] MEDS ORDERED: Morphine 4 MG/ML VIAL ONE (01:07)
[2018-07-21] MEDS ORDERED: chlorproMAZINE HCl 50 MG/2 ML AMP IM/IV PRN (01:10)
[2018-07-21] MEDS: Morphine 4 MG/ML VIAL SLOW IVP PRN (01:11)
[2018-07-21] MEDS ORDERED: Scopolamine 1.5 mg/72 hour Patch TOP PRN (01:11)
[2018-07-21] MEDS: Lorazepam 2 MG/ML VIAL SLOW IVP PRN (13:47)
[2018-07-21] MEDS: Lorazepam 0.5 MG TAB PO PRN (21:28)
[2018-07-22] MEDS ORDERED: Morphine 4 MG/ML VIAL ONE ×2 (00:58→08:09)
[2018-07-22] MEDS: Morphine 4 MG/ML VIAL SLOW IVP PRN ×2 (01:12→08:12)
[2018-07-22] MEDS: Morphine 10 MG/0.5 ML ORAL SYRINGE SL PRN ×4 (03:13→19:05)
[2018-07-22] MEDS: Lorazepam 0.5 MG TAB PO PRN (20:43)
[2018-07-23] MEDS ORDERED: Morphine 4 MG/ML VIAL ONE ×4 (07:45→20:11)
[2018-07-23] MEDS: Morphine 4 MG/ML VIAL SLOW IVP PRN ×4 (07:48→20:15)
[2018-07-23] MEDS: Lorazepam 0.5 MG TAB PO PRN (21:02)
[2018-07-24] MEDS ORDERED: Morphine 4 MG/ML VIAL ONE ×6 (00:26→20:16)
[2018-07-24] MEDS: Morphine 4 MG/ML VIAL SLOW IVP PRN ×6 (00:33→20:27)
[2018-07-24] MEDS: Milk Of Magnesia 30 ML UDCUP PO SCH (15:48)
[2018-07-24] MEDS ORDERED: Lorazepam 2 MG/ML VIAL ONE (20:14)
[2018-07-24] MEDS: Lorazepam 2 MG/ML VIAL SLOW IVP PRN (20:29)
[2018-07-25] MEDS: Lorazepam 0.5 MG TAB PO PRN (02:37)
[2018-07-25] MEDS ORDERED: Morphine 4 MG/ML VIAL ONE ×4 (04:27→11:41)
[2018-07-25] MEDS: Morphine 4 MG/ML VIAL SLOW IVP PRN ×4 (04:40→11:52)
[2018-07-25] MEDS ORDERED: Lorazepam 2 MG/ML VIAL ONE ×2 (08:00→13:08)
[2018-07-25] MEDS: Lorazepam 2 MG/ML VIAL SLOW IVP PRN ×2 (08:04→13:16)
[2018-07-25] MEDS: Morphine 10 MG/0.5 ML ORAL SYRINGE SL PRN ×5 (08:36→20:13)
[2018-07-25] MEDS ORDERED: Promethazine HCl 25 MG SUPP ONE (09:41)
[2018-07-25] MEDS ORDERED: diphenhydrAMINE 50 MG/ML VIAL ONE (10:45)
[2018-07-25] MEDS: diphenhydrAMINE 50 MG/ML VIAL IVP PRN (10:49)
[2018-07-25] MEDS ORDERED: chlorproMAZINE HCl 50 MG/2 ML AMP ONE (11:01)
[2018-07-25] MEDS ORDERED: chlorproMAZINE HCl 50 MG/2 ML AMP IM/IV PRN (11:01)
[2018-07-25] MEDS ORDERED: Dexamethasone 4 mg/ml Vial SLOW IVP SCH (11:30)
[2018-07-25] MEDS ORDERED: Dexamethasone 4 mg/ml Vial ONE (11:40)
[2018-07-25] MEDS ORDERED: Morphine 4 MG/ML VIAL SLOW IVP PRN (12:58)
[2018-07-25] MEDS: Milk Of Magnesia 30 ML UDCUP PO SCH (13:14)
[2018-07-25] MEDS ORDERED: METHadone HCl 10 MG TAB PO SCH (14:00)
[2018-07-25] MEDS ORDERED: HYDROmorphone 0.5 MG/0.5 ML SYRINGE ONE (16:07)
[2018-07-25] MEDS ORDERED: fentaNYL 50 mcg/hour Patch TD SCH (16:30)
[2018-07-26] MEDS: Morphine 10 MG/0.5 ML ORAL SYRINGE SL PRN (07:03)
[2018-07-26] MEDS: Milk Of Magnesia 30 ML UDCUP PO SCH (13:34)
[2018-07-27] MEDS ORDERED: Morphine 4 MG/ML VIAL ONE (00:25)
[2018-07-27] MEDS: Lorazepam 0.5 MG TAB PO PRN (00:37)
[2018-07-27] MEDS ORDERED: HYDROmorphone 0.5 MG/0.5 ML SYRINGE ONE ×4 (10:58→19:56)
[2018-07-27] MEDS: HYDROmorphone 0.5 MG/0.5 ML SYRINGE SLOW IVP PRN ×3 (11:05→20:02)
[2018-07-27] MEDS ORDERED: fentaNYL 50 mcg/hour Patch TD SCH (17:00)
[2018-07-27] MEDS: Milk Of Magnesia 30 ML UDCUP PO SCH (18:34)
[2018-07-28] MEDS ORDERED: HYDROmorphone 0.5 MG/0.5 ML SYRINGE ONE ×5 (01:30→16:46)
[2018-07-28] MEDS: HYDROmorphone 0.5 MG/0.5 ML SYRINGE SLOW IVP PRN ×5 (01:39→16:56)
[2018-07-28] MEDS: CHLORPROMAZINE 100 MG PR PRN (14:06)
[2018-07-28] MEDS: Milk Of Magnesia 30 ML UDCUP PO SCH (15:42)
[2018-07-28] MEDS: Morphine 10 MG/0.5 ML ORAL SYRINGE SL PRN (21:23)
[2018-07-29] MEDS: Morphine 10 MG/0.5 ML ORAL SYRINGE SL PRN ×6 (02:09→20:46)
[2018-07-29] MEDS ORDERED: HYDROmorphone 0.5 MG/0.5 ML SYRINGE ONE (12:03)
[2018-07-29] MEDS: HYDROmorphone 0.5 MG/0.5 ML SYRINGE SLOW IVP PRN (12:07)
[2018-07-29] MEDS: Milk Of Magnesia 30 ML UDCUP PO SCH (14:00)
[2018-07-29] MEDS ORDERED: Scopolamine 1.5 mg/72 hour Patch TOP SCH (15:00)
[2018-07-29] MEDS ORDERED: fentaNYL 50 mcg/hour Patch TD SCH (15:00)
[2018-07-29] MEDS ORDERED: Fentanyl 100 MCG/2 ML VIAL ONE ×10 (17:01→23:40)
[2018-07-29] MEDS: Fentanyl 100 MCG/2 ML VIAL SLOW IVP PRN ×10 (17:03→23:50)
[2018-07-29] MEDS ORDERED: Haloperidol Lactate 5 MG/ML VIAL ONE (20:08)
[2018-07-29] MEDS: CHLORPROMAZINE 100 MG PR PRN (20:58)
[2018-07-29] MEDS: Morphine 4 MG/ML VIAL SLOW IVP PRN ×2 (21:39→23:43)
[2018-07-30] MEDS: Morphine 4 MG/ML VIAL SLOW IVP PRN ×3 (02:34→09:55)
[2018-07-30 06:46] VITALS: BP 86/54; TEMP 98.1
[2018-07-30] MEDS ORDERED: Fentanyl 100 MCG/2 ML VIAL ONE ×2 (07:59→10:53)
[2018-07-30] MEDS: Fentanyl 100 MCG/2 ML VIAL SLOW IVP PRN ×2 (08:04→10:56)
[2018-07-30] MEDS ORDERED: diphenhydrAMINE 50 MG/ML VIAL ONE (08:14)
[2018-07-30] MEDS: diphenhydrAMINE 50 MG/ML VIAL IVP PRN (08:15)
[2018-07-30] MEDS ORDERED: Dexamethasone 4 mg/ml Vial SLOW IVP SCH (09:00)
[2018-07-30] MEDS ORDERED: Dexamethasone 4 mg/ml Vial ONE ×2 (09:50→09:51)
[2018-07-30] MEDS: Milk Of Magnesia 30 ML UDCUP PO SCH (11:17)
--- NOTE | 2018-08-01 12:32 | DIS ---
DATE OF ADMISSION: 07/20/2018 DATE OF DISCHARGE: 07/30/2018 DATE OF : 07/30/2018 Primary cause of was acute hypoxic respiratory failure with cardiac arrest with contributing diagnoses of metastatic adenocarcinoma of liver and lung, liver failure, hypertension, history of smoking. HOSPITAL SUMMARY: A 58-year-old male with underlying metastatic adenocarcinoma involving his liver and lung was admitted for progressive weakness and intractable pain. The patient's condition had rapidly declined over the last month with the aforementioned symptoms worsening over the last week. Due to the patient's condition, he was admitted for inpatient hospice care under the guidance of [facility]. The patient received IV hydration and pain control medications along with treatment for agitation. The patient's status continued to decline to the point where he became nonverbal shortly before expiring on 07/30/2018. Job ID: [id number]
== END 2018-07-30 12:06 | disposition expired | DRG 435 ==
LOC: BURMED 17:20
PROVIDERS: ADMIT Family Medicine; ATTEND Family Medicine
DX: C78.7 Secondary malignant neoplasm of liver and intrahepatic bile duct (principal); J96.01 Acute respiratory failure with hypoxia; C78.00 Secondary malignant neoplasm of unspecified lung; E87.1 Hypo-osmolality and hyponatremia; G89.3 Neoplasm related pain (acute) (chronic); Z66 Do not resuscitate; Z51.5 Encounter for palliative care; E11.9 Type 2 diabetes mellitus without complications; C80.1 Malignant (primary) neoplasm, unspecified; E78.5 Hyperlipidemia, unspecified; K59.00 Constipation, unspecified; I46.9 Cardiac arrest, cause unspecified; I10 Essential (primary) hypertension; Z98.41 Cataract extraction status, right eye; Z98.42 Cataract extraction status, left eye; Z98.890 Other specified postprocedural states; Z87.891 Personal history of nicotine dependence
CPT/HCPCS: J1100; J1170; J1200; J1630; J2060; J2270; J3010; J3230